=== PATIENT | male | born 1950 ===

== ENCOUNTER 2024-05-15 07:00 | Inpatient (IN) | payer OTHER ==
[~2024-05-15] VITALS: Ht 172.7 cm; Wt 99.8 kg
[2024-05-15] MEDS ORDERED: TAMSULOSIN HCL0.4 MG PO (07:55)
[2024-05-15] MEDS ORDERED: BENICAR20 MG (07:56)
[2024-05-15] MEDS ORDERED: TOPROL XL25 M1 (07:56)
[2024-05-15] MEDS ORDERED: ATORVASTATIN CA40 MG PO (07:56)
[2024-05-15] MEDS ORDERED: [UNRECOGNIZED DRUG - MIXTURE] (07:57)
[2024-05-15 08:19] VITALS: BP 132/81
[2024-05-15 08:37] LABS: PH,URINE 5.5 (5.0-8.0); URINE APPEARANCE Clear; URINE BILIRRUBIN Negative (NEGATIVE); URINE BLOOD Negative; URINE COLOR Yellow; URINE GLUCOSE Negative (NEGATIVE); URINE KETONE Negative (NEGATIVE); URINE LEUKOCYTE Negative; URINE NITRATE Negative; URINE PROTEIN Negative (NEGATIVE); URINE UROBILINOGEN 0.2 E.U./dl
[2024-05-15 08:43] LABS: HEMATOCRIT 44.8 % (39.0-48.0); HEMOGLOBIN 15.4 g/dL (13-16.00); MEAN CELL VOLUME 94.5 fL (80.0-100.00); MEAN CORPUSCULAR HEMOGLOBIN 32.5 pg (27.00-32.0); MEAN CORPUSCULAR HGB CONC 34.4 g/dl (32.0-36.0); PLATELET COUNT 193 K/uL (150-450); RED BLOOD COUNT 4.74 M/uL (4.00-6.00); RED CELL DISTRIBUTION WIDTH 12.7 % (11.5-14.5)
[2024-05-15 08:43] LABS: URINE BACTERIA 2.4 uL (0.0-1933); URINE CAST 0.14 uL (0.0-1.40); URINE EPITHELIAL CELLS 0.4 uL (0.0-38.8); URINE RBC 0.5 uL (0.0-20.8); URINE WBC 0.9 uL (0.0-23.2)
[2024-05-15 09:01] LABS: INR 1.1; PARTIAL THROMBOPLASTIN TIME 27.9 SECONDS (22.0-34.0); PROTHROMBIN TIME 11.9 SECONDS (9.0-11.5)
[2024-05-15 09:12] LABS: ALBUMIN 3.9 gm/dL (3.4-5.0); BILIRUBIN TOTAL 0.89 mg/dL (0.3-1.2); CALCIUM 9.5 mg/dL (8.5-10.1); CREATININE SERUM 1.33 mg/dL (0.70-1.30); GLOBULINA 3.5 G/DL (2.4-3.5); POTASSIUM 3.86 mEq/L (3.5-5.1); TOTAL PROTEIN 7.4 gm/dL (6.4-8.2)
[2024-05-21] MEDS ORDERED: TRANEXAMIC ACID 100MG/1ML (1000MG) AMPUL IV ONE ×2 (07:30)
[2024-05-21] MEDS ORDERED: ISOPROPYL ALCOHOL 30 ML OUNCE TOP ONE (07:30)
[2024-05-21] MEDS ORDERED: LIDOCAINE HCL 1%/EPINEPHRINE 20ML VIAL IJ ONE (07:30)
[2024-05-21] MEDS ORDERED: CEFAZOLIN SODIUM 1,000 MG VIAL IV ONE (07:30)
[2024-05-21] MEDS ORDERED: KETOROLAC TROMETHAMINE 60 MG VIAL IM ONE (07:30)
[2024-05-21] MEDS ORDERED: EPINEPHRINE HCL/PF 1 MG/ML AMPUL IR ONE (07:30)
[2024-05-21] MEDS ORDERED: BUPIVACAINE HCL 30 ML VIAL IJ ONE (07:30)
[2024-05-21] MEDS ORDERED: VANCOMYCIN HCL 1,000 MG VIAL IR ONE (07:30)
[2024-05-21] MEDS ORDERED: MORPHINE SULFATE 4 MG/ML VIAL IV ONE (07:30)
[2024-05-21] MEDS ORDERED: ONDANSETRON HCL 2 MG/ML VIAL IV PRN (08:15)
[2024-05-21] MEDS ORDERED: OxyCODONE HCL/APAP UD (PERCOCET) PO PRN (08:15)
[2024-05-21] MEDS ORDERED: CEFAZOLIN SODIUM 1,000 MG VIAL IV SCH (12:00)
[2024-05-21] MEDS ORDERED: MORPHINE SULFATE 4 MG/ML CARTRIDGE IV SCH (12:00)
[2024-05-21 16:00] VITALS: BP 149/84; O2SAT 98
[2024-05-21] MEDS ORDERED: ATORVASTATIN CALCIUM 40 MG TABLET PO SCH (17:00)
[2024-05-21] MEDS ORDERED: ORPHENADRINE CITRATE 100 MG TABLET PO SCH (21:00)
[2024-05-21] MEDS ORDERED: GABAPENTIN 100 MG CAPSULE PO SCH (21:00)
[2024-05-22 00:10] VITALS: BP 153/81; O2SAT 99
[2024-05-22 07:36] LABS: HEMATOCRIT 38.7 % (39.0-48.0); HEMOGLOBIN 13.7 g/dL (13-16.00); MEAN CELL VOLUME 92.6 fL (80.0-100.00); MEAN CORPUSCULAR HEMOGLOBIN 32.9 pg (27.00-32.0); MEAN CORPUSCULAR HGB CONC 35.5 g/dl (32.0-36.0); PLATELET COUNT 159 K/uL (150-450); RED BLOOD COUNT 4.18 M/uL (4.00-6.00); RED CELL DISTRIBUTION WIDTH 12.8 % (11.5-14.5)
[2024-05-22 08:12] VITALS: BP 131/78; O2SAT 95
[2024-05-22] MEDS ORDERED: METOPROLOL SUCCINATE 25 MG TAB.SR.24H PO SCH (09:00)
[2024-05-22] MEDS ORDERED: BENICAR HCT PO SCH (09:00)
[2024-05-22] MEDS ORDERED: APIXABAN 2.5 MG TABLET PO SCH (09:00)
[2024-05-22] MEDS ORDERED: Cyanocobalamin/Mecobalamin 1 TAB.SL SL NR (12:45)
[2024-05-22] MEDS ORDERED: IRON FUM,PS/FOLIC ACID/VITC/B3 1 CAP CAPSULE PO NR (12:45)
[2024-05-22] MEDS ORDERED: TAMSULOSIN HCL 0.4 MG CAP PO SCH (14:04)
[2024-05-22] MEDS ORDERED: ACETAMINOPHEN 500 MG GEL..CAP PO PRN (15:30)
[2024-05-22] MEDS ORDERED: LIDOCAINE HCL PO SCH (17:00)
[2024-05-22] MEDS ORDERED: DIPHENHYDRAMINE HCL 150 MG PO SCH (17:00)
[2024-05-22] MEDS ORDERED: VITAMIN B COMPLEX 1 EACH PO SCH (17:00)
[2024-05-22] MEDS ORDERED: DEXAMETHASONE 6 MG PO SCH (17:00)
[2024-05-22 17:01] VITALS: BP 160/69; O2SAT 96
[2024-05-23 00:40] VITALS: BP 145/68; O2SAT 97
[2024-05-23 06:50] LABS: HEMATOCRIT 37.6 % (39.0-48.0); HEMOGLOBIN 12.9 g/dL (13-16.00); MEAN CELL VOLUME 94.1 fL (80.0-100.00); MEAN CORPUSCULAR HEMOGLOBIN 32.3 pg (27.00-32.0); MEAN CORPUSCULAR HGB CONC 34.3 g/dl (32.0-36.0); PLATELET COUNT 152 K/uL (150-450); RED BLOOD COUNT 3.99 M/uL (4.00-6.00); RED CELL DISTRIBUTION WIDTH 12.5 % (11.5-14.5)
[2024-05-23 08:41] VITALS: BP 178/91; O2SAT 96
[2024-05-23] MEDS ORDERED: IRON FUM,PS/FOLIC ACID/VITC/B3 1 CAP CAPSULE PO SCH (09:00)
[2024-05-23] MEDS ORDERED: Cyanocobalamin/Mecobalamin 1 TAB.SL SL SCH (09:00)
[2024-05-23 16:00] VITALS: BP 167/80; O2SAT 95
[2024-05-23] MEDS ORDERED: CEFAZOLIN SODIUM 1,000 MG VIAL IV SCH (17:00)
[2024-05-23] MEDS ORDERED: OxyCODONE HCL/APAP UD (PERCOCET) PO PRN (17:15)
[2024-05-24] VITALS: BP 155/89; O2SAT 98
[2024-05-24 09:26] VITALS: BP 122/75; O2SAT 94
[2024-05-24] MEDS ORDERED: OxyCODONE HCL/APAP UD (PERCOCET) PO PRN (11:45)
[2024-05-24] MEDS ORDERED: MORPHINE SULFATE 4 MG/ML CARTRIDGE IV SCH (12:00)
[2024-05-24 16:00] VITALS: BP 151/78; O2SAT 98
[2024-05-25 00:44] VITALS: BP 143/75; O2SAT 98
[2024-05-25 09:06] VITALS: BP 163/87; O2SAT 96
[2024-05-25] MEDS ORDERED: NORFLEX100MG PO (10:48)
[2024-05-25] MEDS ORDERED: ELIQUIS2.5 MG PO (10:48)
[2024-05-25] MEDS ORDERED: GABAPENTIN100 MG PO (10:49)
[2024-05-25] MEDS ORDERED: OXYC1TAB9 PO (10:49)
[2024-05-25] MEDS ORDERED: CEPHALEXIN500 M1 PO (10:50)
== END 2024-05-25 13:46 | DRG 470 ==
LOC: SURH 05-21 05:24 → O/R 05-21 05:24 → SURH 05-21 07:00
PROVIDERS: ADMIT Orthopaedic Surgery; ATTEND Orthopaedic Surgery
PROC: 0SRD0JZ Replacement of Left Knee Joint with Synthetic Substitute, Open Approach (ICD-10-PCS; principal; 2024-05-21 09:15)
DX: M17.12 Unilateral primary osteoarthritis, left knee (principal); I10 Essential (primary) hypertension; E78.6 Lipoprotein deficiency